=== PATIENT | female | born 2000 | race Caucasian/White ===

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

== ENCOUNTER 2020-08-21 23:13 | Emergency (ER) | payer MEDICAID ==
[~2020-08-21] VITALS: Ht 165.1 cm; Wt 113.4 kg
[2020-08-21 23:22] VITALS: BP 169/119
--- NOTE | 2020-08-21 23:30 | NUR ---
PT AMBULATED TO BED 11
--- NOTE | 2020-08-21 23:33 | NUR ---
ERMD AT BEDSIDE ASSESSING PATIENT.
--- NOTE | 2020-08-21 23:33 | NUR ---
SEE PATIENT ASSESSMENT FOR MORE INFORMATION.
--- NOTE | 2020-08-21 23:53 | NUR ---
ekg performed at bedside. ekg reads sinus rhythm
--- NOTE | 2020-08-22 00:01 | NUR ---
PATIENT AMBULATED TO BATHROOM W STEADY GAIT.
--- NOTE | 2020-08-22 00:04 | NUR ---
radiology at bedside.
[2020-08-22 00:58] VITALS: BP 153/94
--- NOTE | 2020-08-22 00:58 | NUR ---
Patient discharged with v/s stable. Written and verbal after care instructions given and explained. Patient verbalized understanding. Ambulatory with steady gait. All questions addressed prior to discharge. Advised to follow up with PMD.
== END 2020-08-22 00:58 | disposition home or self-care (01) ==
LOC: MED 23:13
DX: F41.9 Anxiety disorder, unspecified (principal); H53.8 Other visual disturbances; R06.02 Shortness of breath
CPT/HCPCS: 71045; 81025; 93005; 99283; 99284

== ENCOUNTER 2020-09-19 19:56 | Emergency (ER) | payer MEDICAID ==
[~2020-09-19] VITALS: Ht 162.6 cm; Wt 113.4 kg
[2020-09-19 20:04] VITALS: BP 135/77
--- NOTE | 2020-09-19 20:10 | NUR ---
PT TAKEN TO BED 7
--- NOTE | 2020-09-19 20:20 | NUR ---
PATIENT PRESENTS TO ED WITH C/O CP X 3 HOURS . PT STATES I HAVE A HISTORY OF HIGH CHOLESTEROL. DENIES N/V/D; SKIN IS PINK/WARM/DRY; AAOX4 WITH EVEN AND STEADY GAIT; LUNGS CLEAR BL; HR EVEN AND REGULAR;CM = SR WITHOUT ECTOPY PT DENIES ANY FEVER, CP, SOB, OR COUGH AT THIS TIME; PATIENT STATES PAIN OF 9/10 AT THIS TIME; VSS; PATIENT POSITIONED FOR COMFORT; HOB ELEVATED; BEDRAILS UP X2; BED DOWN. ER MD MADE AWARE OF PT STATUS.
--- NOTE | 2020-09-19 20:22 | NUR ---
Dr. Lester examining patient.
[2020-09-19 20:44] LABS: BASOPHILS # (AUTO) 0.1 K/uL (0.00-0.22); BASOPHILS % (AUTO) 0.6 % (0.0-2.0); EOSINOPHILS # (AUTO) 0.2 K/uL (0-0.4); EOSINOPHILS % (AUTO) 1.9 % (0.0-4.0); HEMATOCRIT 37.9 % (36-48); HEMOGLOBIN 12.5 g/dL (12.0-16.0); LYMPHOCYTES # (AUTO) 3.6 K/uL (2.5-16.5); LYMPHOCYTES % (AUTO) 35.3 % (20.5-51.1); MEAN CORPUSCULAR HEMOGLOBIN 28 pg (27-31); MEAN CORPUSCULAR HGB CONC 33 g/dL (33-37); MEAN CORPUSCULAR VOLUME 83.4 fL (80-94); MONOCYTES # (AUTO) 0.8 K/uL (0.8-1.0); MONOCYTES % (AUTO) 8.2 % (1.7-9.3); NEUTROPHILS # (AUTO) 5.5 K/uL (1.8-7.7); PLATELET COUNT (AUTO) 272 K/uL (140-450); RED BLOOD CELL COUNT(AUTO) 4.55 MIL/uL (4.20-5.40); RED CELL DISTRIBUTION WIDTH 14.5 % (11.6-13.7); WHITE BLOOD COUNT (AUTO) 10.2 K/uL (4.5-11.0)
[2020-09-19 21:08] LABS: ANION GAP 14.8 (8-16); CARBON DIOXIDE 25.7 mmol/L (21-32); CREATININE 0.8 mg/dL (0.6-1.3); POTASSIUM 3.5 mmol/L (3.5-5.1)
[2020-09-19 21:12] LABS: PROTHROMBIN TIME 10.4 secs (10.8-13.4)
[2020-09-19] MEDS ORDERED: KETOROLAC 30 MG/ML VIAL IM ONE (22:15)
[2020-09-19] MEDS ORDERED: KETOROLAC 30 MG/ML VIAL ONE (22:18)
--- NOTE | 2020-09-19 22:20 | NUR ---
PREPARING FOR DISCHARGE. MEDICATED ORDERED FOR PAIN.
[2020-09-19 22:50] VITALS: BP 106/66
== END 2020-09-19 22:50 | disposition home or self-care (01) ==
LOC: MED 19:56
DX: R07.89 Other chest pain (principal); R42 Dizziness and giddiness
CPT/HCPCS: 36415; 71045; 80053; 81002; 81025; 83880; 84484; 85025; 85610; 85730; 93005; 96372; 99285; J1885

== ENCOUNTER 2020-11-06 00:08 | Emergency (ER) | payer MEDICAID ==
[~2020-11-06] VITALS: Ht 167.6 cm; Wt 130.2 kg
[2020-11-06 00:15] VITALS: BP 147/91
--- NOTE | 2020-11-06 00:19 | NUR ---
PATIETN UNBALE TO GIVE URINE SAMPLE AT THIS TIME. PATIENT GIVEN UA CUP AND AMBUALTED TO LOBBY TO AWAIT MSE.
--- NOTE | 2020-11-06 01:02 | NUR ---
pt taken to bed #11
--- NOTE | 2020-11-06 01:11 | NUR ---
19 Y/O FEMALE PATIENT PRESENTS TO ED WITH ABDOMINAL PAIN . PT STATES "IT HURTS WHEN I PRESS MY STOMACH AND DOWN TO LOWER ABDOMINAL AREA. MY FAMILY HAS HX OF APPENDIX REMOVED." DENIES N/V/D; SKIN IS PINK/WARM/DRY; AAOX4 WITH EVEN AND STEADY GAIT; LUNGS CLEAR BL; HR EVEN AND REGULAR; PT DENIES ANY FEVER, CP, SOB, OR COUGH AT THIS TIME; PATIENT STATES PAIN OF 6/10 AT THIS TIME; VSS; PATIENT POSITIONED FOR COMFORT; HOB ELEVATED; BEDRAILS UP X2; BED DOWN. ER MD MADE AWARE OF PT STATUS. PMH: ELEVATED CHOLESTEROL NKA LMP: June
[2020-11-06 01:42] LABS: APPEARANCE,URINE SL CLOUDY (CLEAR); BILIRUBIN,URINE NEGATIVE (NEGATIVE); BLOOD, URINE NEGATIVE (NEGATIVE); COLOR,URINE YELLOW (YELLOW); LEUKOCYTE ESTERASE ,URINE 1+ (NEGATIVE); NITRITE, URINE NEGATIVE (NEGATIVE); PH,URINE 6.5 (5.0-9.0); UGLUCOSE NEGATIVE (NEGATIVE)
[2020-11-06 01:49] LABS: RBC,URINE 0-5 /HPF (0-5)
[2020-11-06 02:00] VITALS: BP 147/91
[2020-11-06] MEDS ORDERED: NITR100C7 PO (02:00)
== END 2020-11-06 02:00 | disposition home or self-care (01) ==
LOC: MED 00:08
DX: N39.0 Urinary tract infection, site not specified (principal); Z79.899 Other long term (current) drug therapy
CPT/HCPCS: 81001; 81025; 87086; 99283

== ENCOUNTER 2022-04-07 18:11 | Emergency (ER) | payer MEDICAID ==
[~2022-04-07 18:11] MED LIST: NITR100C7 PO
--- NOTE | 2022-04-07 18:50 | NUR ---
CALLED IN LOBBY, NO ANSWER
--- NOTE | 2022-04-07 19:00 | NUR ---
CALLED IN LOBBY, NO ANSWER
--- NOTE | 2022-04-07 19:14 | NUR ---
CALLED IN LOBBY, NO ANSWER
--- NOTE | 2022-04-07 19:30 | NUR ---
CALLED TO TRIAGE, NO ANSWER. LWBS
== END 2022-04-07 18:50 | disposition left against medical advice (07) ==
LOC: MED 18:11
DX: L50.9 Urticaria, unspecified (principal); Z53.21 Procedure and treatment not carried out due to patient leaving prior to being seen by health care provider